=== PATIENT | male | born 1955 | race Asian ===

== ENCOUNTER 2019-06-09 16:16 | Emergency (ER) | payer OTHER ==
[~2019-06-09] VITALS: Ht 176.5 cm; Wt 134.3 kg
[~2019-06-09 16:16] MED LIST: ACID REDUCER150 M1 PO; ALBUSOL IN; AMLODIPINE BESYLATE PO; ATEN25TA21 PO; BENZ1TAB43 PO; BUDE1AER5 INH; BYDUREON2 MG SC; CLOZ100T PO; DIVA500T2 PO; DIVALPROEX250 MG PO; DIVALPROEX500 MG PO; ESCI10TA PO; FAZACLO200 MG PO; FSBS; FURO40TA93 PO; HALO50IN4 IM; HALO5INJ3 IM; HUMALOG KWI100 MG/ML SC; HUMULIN 70/30 K1 INJ SC; HUMULIN R1 ML SC; INSU100I2 SC; INVOKANA100 MG PO; LEVO-T25 MCG PO; LORA2INJ21 IM; MAGNESIUM OXID400 M1 PO; MAGNSUS68 PO; MECLIZINE25 MG PO; METF100038 PO; OLAN10INJ IM; OLANZAPINE10 MG PO; OXCARBAZEPIN300 MG PO; PARO20TA3 PO; PAROXETINE10 MG PO; PAROXETINE30 MG PO; PRAVACHOL20 MG PO; TRESIBA FL100 UNIT/M SC; TRILEPTAL150 MG PO; XALATAN0.005 % OP; ZYPREXA ZYDI10 MG PO
[2019-06-09 18:00] VITALS: BP 143/83; TEMP 97.9
[2019-06-09] MEDS ORDERED: BENZ1TAB43 PO (18:37)
[2019-06-09] MEDS ORDERED: LEXAPRO20 MG PO (18:38)
[2019-06-09] MEDS ORDERED: ZYPREXA ZYDI15 MG PO (18:39)
[2019-06-09] MEDS ORDERED: TRAVATAN Z0.004 % OPTH (18:40)
[2019-06-09] MEDS ORDERED: FINGERSTIX (18:41)
[2019-06-09] MEDS ORDERED: HUMALOG KW100 UNIT/M SC (18:42)
[2019-06-09] MEDS ORDERED: LANTUS100 UNIT/M SC (18:43)
[2019-06-09] MEDS ORDERED: BENADRYL ALLERG25 MG PO (18:44)
[2019-06-14] MEDS ORDERED: HALO5INJ3 IM (18:25)
[2019-06-14] MEDS ORDERED: ZYPREXA ZYDI15 MG PO (18:26)
[2019-06-14] MEDS ORDERED: LORA2INJ21 IM (18:27)
[2019-06-14] MEDS ORDERED: DIPH50IN IM (18:27)
[2019-06-14] MEDS ORDERED: OLAN10INJ IM (18:28)
[2019-06-14] MEDS ORDERED: HALO50IN4 IM (18:29)
== END 2019-06-09 18:00 | disposition other institution (70) ==
LOC: ED 16:16
DX: F20.89 Other schizophrenia (principal); F91.8 Other conduct disorders; Z04.6 Encounter for general psychiatric examination, requested by authority
CPT/HCPCS: 36415; 80164; 81000; 93005; 96374; 99284